=== PATIENT | male | born 1995 | race Caucasian/White ===

== ENCOUNTER 2017-01-07 17:12 | Emergency (ER) | payer BC ==
[~2017-01-07] VITALS: Ht 182.9 cm; Wt 74.8 kg
[2017-01-07 18:08] LABS: BASOPHIL % 0.5 % (0-2); PLATELET COUNT 269 x10^3mcL (130-400); RED CELL DISTRIBUTION WIDTH 13.8 % (11.5-14.5)
[2017-01-07 18:30] VITALS: BP 146/79
[2017-01-07 18:32] LABS: ALBUMIN 4.2 g/dL (3.4-5.0); ALKALINE PHOSPHATASE 63 U/L (46-116); ALT/SGPT 29 U/L (16-63); AST/SGOT 20 U/L (15-37); BILIRUBIN TOTAL 0.4 mg/dL (0.20-1.00); CALCIUM 8.7 mg/dL (8.5-10.1); CARBON DIOXIDE 29.9 mmol/L (21-32); CHLORIDE SERUM 104 mmol/L (98-107); GFR1 > 60 mL/min; GLUCOSE SERUM 142 mg/dL (74-106); POTASSIUM SERUM 4.6 mmol/L (3.5-5.1); SODIUM SERUM 140 mmol/L (136-145); TOTAL PROTEIN, SERUM 8.2 g/dL (6.4-8.2)
[2017-01-07 18:41] LABS: AMPHETAMINE QUAL UR NONE DETECTED (NEG <=1000)
== END 2017-01-07 19:24 | disposition home or self-care (01) ==
LOC: ED 17:12
PROVIDERS: Emergency Medicine
DX: F13.10 Sedative, hypnotic or anxiolytic abuse, uncomplicated (principal); F11.10 Opioid abuse, uncomplicated; F41.9 Anxiety disorder, unspecified; Z79.899 Other long term (current) drug therapy
CPT/HCPCS: G0480

== ENCOUNTER 2017-03-15 21:56 | Emergency (ER) | payer BC ==
[2017-03-16 00:20] VITALS: BP 127/78
== END 2017-03-16 00:20 | disposition home or self-care (01) ==
LOC: ED 21:56
DX: G56.31 Lesion of radial nerve, right upper limb (principal); M54.2 Cervicalgia; F41.9 Anxiety disorder, unspecified; J45.909 Unspecified asthma, uncomplicated; Z79.899 Other long term (current) drug therapy

== ENCOUNTER 2017-04-23 21:04 | Emergency (ER) | payer BC ==
[~2017-04-23] VITALS: Ht 180.3 cm; Wt 79.4 kg
[2017-04-23 21:53] LABS: BASOPHIL % 0.3 % (0-2); PLATELET COUNT 279 x10^3mcL (130-400); RED CELL DISTRIBUTION WIDTH 14.4 % (11.5-14.5)
[2017-04-23 21:59] LABS: CALCIUM 9.2 mg/dL (8.5-10.1); CARBON DIOXIDE 25.6 mmol/L (21-32); CHLORIDE SERUM 105 mmol/L (98-107); CREATININE SERUM 1.3 mg/dL (0.7-1.3); GFR1 > 60 mL/min; GLUCOSE SERUM 97 mg/dL (74-106); POTASSIUM SERUM 3.8 mmol/L (3.5-5.1); SODIUM SERUM 145 mmol/L (136-145)
[2017-04-23 22:05] LABS: ALBUMIN 4.7 g/dL (3.4-5.0); ALKALINE PHOSPHATASE 70 U/L (46-116); ALT/SGPT 64 U/L (16-63); AST/SGOT 64 U/L (15-37); BILIRUBIN TOTAL 0.6 mg/dL (0.20-1.00)
[2017-04-23 23:31] VITALS: BP 128/82
== END 2017-04-23 23:31 | disposition home or self-care (01) ==
LOC: ED 21:04
PROVIDERS: Emergency Medicine
DX: S00.93XA Contusion of unspecified part of head, initial encounter (principal); J45.909 Unspecified asthma, uncomplicated; F10.129 Alcohol abuse with intoxication, unspecified; Y04.8XXA Assault by other bodily force, initial encounter; Y93.89 Activity, other specified; Y92.89 Other specified places as the place of occurrence of the external cause; Y99.8 Other external cause status
CPT/HCPCS: 36415; G0480; J3010; J7512; J7613; J7644

== ENCOUNTER 2018-01-10 16:44 | Emergency (ER) | payer SELFPAY ==
[~2018-01-10] VITALS: Ht 180.3 cm; Wt 91.6 kg
[2018-01-10 16:52] VITALS: Ht 180.3 cm; Wt 91.6 kg
[2018-01-10 17:48] VITALS: BP 136/79
== END 2018-01-10 17:48 | disposition home or self-care (01) ==
LOC: ED 16:44
DX: T78.01XA Anaphylactic reaction due to peanuts, initial encounter (principal); J45.909 Unspecified asthma, uncomplicated; Z91.010 Allergy to peanuts; X58.XXXA Exposure to other specified factors, initial encounter
CPT/HCPCS: Q0163